=== PATIENT | male | born 1985 | race Two or more races ===

== ENCOUNTER 2023-10-06 12:58 | Emergency (ER) | payer MEDICARE ==
[~2023-10-06] VITALS: Ht 182.9 cm; Wt 95.0 kg
[2023-10-06 13:12] VITALS: O2SAT 98
[2023-10-06 14:45] VITALS: BP 150/92; PULSE 63; RESP 18; TEMP 98.1
== END 2023-10-06 14:54 | disposition home or self-care (01) ==
LOC: ER 12:58
DX: F99 Mental disorder, not otherwise specified (principal)
CPT/HCPCS: 99283